=== PATIENT | male | born 2000 ===

== ENCOUNTER 2024-12-19 09:29 | Outpatient (CLI) | payer OTHER, SELFPAY ==
[2024-12-19 14:40] LABS: Chlamydia DNA Amplified* NOT DETECTED (No Detected); GC DNA Amplified* NOT DETECTED (No Detected)
== END 2024-12-19 09:30 | disposition home or self-care (01) ==
LOC: LKVREF 09:30
PROVIDERS: Visit Provider Emergency Medicine
DX: N45.1 Epididymitis (principal); R82.90 Unspecified abnormal findings in urine; Z11.3 Encounter for screening for infections with a predominantly sexual mode of transmission
CPT/HCPCS: 87086; 87491; 87591